=== PATIENT | female | born 1980 | race African-American/Black ===

== ENCOUNTER 2018-03-13 08:58 | Day surgery (SDC) | payer BC ==
[~2018-03-13] VITALS: Ht 167.6 cm; Wt 133.4 kg
--- NOTE | ~2018-03-13 | OP ---
PATIENT NAME: ALDEN MCLEAN MEDICAL RECORD: [id number] :82 LOCATION:D.OPS ADMISSION DATE: SURGEON: ANDREAS BAR MD DATE OF OPERATION: 03/13/2018 PREOPERATIVE DIAGNOSIS: Dysfunctional uterine bleeding. POSTOPERATIVE DIAGNOSES: 1. Dysfunctional uterine bleeding. 2. Uterine polyp. PROCEDURES: 1. Hysteroscopy. 2. Dilation and curettage. SURGEON: Andreas Bar MD ANESTHESIOLOGIST: Rei WALDRON ANESTHETIC: General. FINDINGS: Vaginal vault is unremarkable. Cervix is unremarkable. Approximately 1.5- to 2-cm uterine polyp is arising from the left wall of the uterine cavity. Otherwise, the endometrial lining is unremarkable. SPECIMENS REMOVED: Endometrial curettings with polypoid mass. SPECIMEN DISPOSITION: Pathology. ESTIMATED BLOOD LOSS: Less than or equal to 50 cc. FLUIDS: Lactated Ringer's 700 cc. URINE OUTPUT: Quantity sufficient void prior to this procedure. COMPLICATIONS: None. DRAINS: None. INDICATION: The patient is a 37-year-old female with dysfunctional uterine bleeding. Ultrasound was performed and findings were suspicious for uterine mass. The patient is considered for dilation and curettage to address dysfunctional uterine bleeding and investigate ultrasound findings. DESCRIPTION OF PROCEDURE: After informed consent was ensured, the patient was taken to the operating room. where anesthetic was obtained. The patient was prepped and draped after being placed in Joe stirrups. A speculum was introduced in the vagina. The cervix was visualized, grasped with a single-toothed tenaculum, and placed on gentle traction. The cervix was now serially dilated to accommodate a hysteroscope. Hysteroscope was advanced under direct visualization with the above findings. After this had been completed, the cervix was further dilated to accommodate a #2 curette. Curettage was now performed with good cry obtained throughout. Attention was specifically directed at the left endometrial cavity wall where polypoid mass has been removed. Specimen appears in the curettings and is passed off the field. OPERATIVE REPORT [id number] ALDEN MCLEAN Another look with the hysteroscope revealed no further mass present. The single-tooth tenaculum that was used to steady the cervix during the procedure was removed and a ring forceps was placed over this to be taken off as the patient was taken down from the stirrups and passed on to the [place]. Sponge, lap, and needle counts were correct times 2. TRANSINT:[id number] Voice Confirmation ID: [id number] DOCUMENT ID: [id number] ANDREAS BAR MD at 1431 CC: [id number] DICTATION DATE: 03/13/18 1440 LOCOMOTIVE ENGINEER ELECTRIC: 03/13/18 1528 [facility] 03/13/18 [place] [id number] [place] [id number]
[2018-03-13 09:29] LABS: BASOPHILS 0.4 % (0-2); EOSINOPHILS 3.6 % (0-7); HEMOGLOBIN 12.2 g/dL (12-16); IMMATURE GRANULOCYTES 0.3 % (0-5); LYMPHOCYTES 39.4 % (15-50); MCH 25.8 pg (26.0-34.0); MCHC 32.1 g/dL (31.0-37.0); MCV 80.3 fL (80.0-100.0); MEAN PLATELET VOLUME 10.3 fL (7.4-10.4); MONOCYTES 8.8 % (2-11); NEUTROPHILS 47.5 % (40-80); PLATELET COUNT 328 10x3/uL (130-400); RBC 4.73 10x6/uL (4.00-5.40); RDW 14.2 % (11.5-14.5); WBC 7.1 10x3/uL (4.8-10.8)
[2018-03-13] MEDS ORDERED: NIFEDIPINE30 MG/BOT1 PO (10:07)
[2018-03-13] MEDS ORDERED: HYDROCHLOROTH12.5 M1 PO (10:07)
[2018-03-13 10:36] VITALS: BP 117/64; Ht 167.6 cm; Wt 133.4 kg
[2018-03-13 10:47] LABS: HCG URINE NEGATIVE (NEGATIVE)
== END 2018-03-13 17:04 | disposition home or self-care (01) ==
LOC: D.OPS 08:58 → D.PAN 10:15 → D.OPS 10:15 → D.PAN 11:00 → D.OPS 17:04
PROVIDERS: Obstetrics & Gynecology
DX: N84.0 Polyp of corpus uteri (principal); Z01.812 Encounter for preprocedural laboratory examination

== ENCOUNTER → 2018-07-19 07:58 | Outpatient (CLI) | payer BC ==
[2018-03-13 10:36] VITALS: BMI 47.5
[~2018-07-19 07:58] MED LIST: HYDROCHLOROTH12.5 M1 PO; NIFEDIPINE30 MG/BOT1 PO
== END | disposition home or self-care (01) ==
LOC: D.US 07:58
DX: E04.1 Nontoxic single thyroid nodule (principal)